=== PATIENT | female | born 1950 | race African-American/Black ===

== ENCOUNTER 2017-06-22 08:25 | Emergency (ER) | payer OTHER ==
[2017-06-22 08:30] VITALS: RESP 18
--- NOTE | 2017-06-22 09:05 | XR ---
EXAMINATION TYPE: XR ankle complete LT DATE OF EXAM: 06/22/2017 CLINICAL HISTORY: Left ankle mass with pain and swelling. TECHNIQUE: Frontal, lateral and oblique images of the left ankle are obtained. COMPARISON: None. FINDINGS: There is no acute fracture/dislocation evident in the left ankle. The ankle mortise appea rs within normal limits. There is focal soft tissue swelling over the lateral malleolus. No cortical erosion or periosteal reaction is seen of the fibula.. IMPRESSION: 1. No acute fracture or dislocation in the left ankle. 2. Focal soft tissue swelling over the lateral malleolus. No evidence of osseous involvement radiogra phically. This could represent tissue swelling from injury/trauma with ligamentous or tendinous injur y. Alternatively this could represent a soft tissue mass and enhance MRI could be utilized for furthe r characterization.
--- NOTE | 2017-06-22 09:34 | US ---
EXAMINATION TYPE: US extremity nonvasc mass LT DATE OF EXAM: 06/22/2017 COMPARISON: NONE CLINICAL HISTORY: Palpable lump left ankle x2 weeks. Cystic area visualized measuring 3.8 x 1.6 x 2.8 cm IMPRESSION: There is a 3.8 cm cystic lesion overlying the area of palpable abnormality correlate cli nically.
[2017-06-22] MEDS ORDERED: HYDROcodone/APAP 5-325MG 1 EACH TAB PO STA (09:45)
--- NOTE | 2017-06-22 10:14 | ED ---
Skin/Abscess/FB HPI - General Chief complaint: Skin/Abscess/Foreign Body Stated complaint: Lump on ankle Time Seen by Provider: 06/22/17 08:32 Source: patient, RN notes reviewed Mode of arrival: wheelchair Limitations: no limitations - History of Present Illness Initial comments: This a 66-year-old female presents emergency Department chief complaint of swelling to her left ankle region. She states it has been present for last 1-2 weeks. Denies any injury. She states it does hurt if you press over the area but not to codeine bleeding. Denies rolling her ankle. Denies any leg swelling. She states she's not had this evaluated has not taken any recent Tylenol Motrin. Patient has had no prior injuries like this in the past. - Related Data Previous Rx's Medication Instructions Recorded Hydrocodone/Acetaminophen [Gray 1 tab PO Q6HR PRN #12 tab 06/22/17 5-325] Ibuprofen [Motrin] 600 mg PO Q8HR PRN #30 tab 06/22/17 Allergies Allergy/AdvReac Type Severity Reaction Status Date / Time No Known Allergies Allergy Verified 06/22/17 10:36 Review of Systems ROS Statement: Those systems with pertinent positive or pertinent negative responses have been documented in the HPI. ROS Other: All systems not noted in ROS Statement are negative. Past Medical History History of Any Multi-Drug Resistant Organisms: None Reported Past Surgical History: Tubal Ligation Past Psychological History: No Psychological Hx Reported Smoking Status: Current some day smoker Past Alcohol Use History: None Reported Past Drug Use History: None Reported General Exam Limitations: no limitations General appearance: alert, in no apparent distress Head exam: Present: atraumatic, normocephalic, normal inspection Respiratory exam: Present: normal lung sounds bilaterally. Absent: respiratory distress, wheezes, rales, rhonchi, stridor Cardiovascular Exam: Present: regular rate, normal rhythm, normal heart sounds. Absent: systolic murmur, diastolic murmur, rubs, gallop, clicks Extremities exam: Present: other (Left ankle lateral malleolus there is an area of swelling approximately 2 cm that is boggy in nature there is no warmth pedal pulses are equal bilaterally there is no calf tenderness there is no tenderness of the foot or calf region.) Skin exam: Present: warm, dry. Absent: rash Course Vital Signs 06/22/17 08:26 Temperature 98.7 F Pulse Rate 94 Respiratory 18 Rate Blood Pressure 139/76 O2 Sat by Pulse 100 Oximetry Medical Decision Making - Medical Decision Making 66-year-old female presented for swelling to her left ankle. Patient had x-ray and ultrasound. Ultrasound shows cystic structure. This does not appear to be abscess or infectious there is no warmth. Patient will be discharged and follow -up with orthopedics. Return parameters were discussed. Disposition Clinical Impression: Cyst of soft tissue Disposition: HOME SELF-CARE Condition: Stable Instructions: Cyst (ED) Additional Instructions: Please return to the Emergency Department if symptoms worsen or any other concerns. Prescriptions: Hydrocodone/Acetaminophen [Gray 5-325] 1 tab PO Q6HR PRN #12 tab PRN Reason: Pain Ibuprofen [Motrin] 600 mg PO Q8HR PRN #30 tab PRN Reason: Pain Is patient prescribed a controlled substance at d/c from ED?: Yes If prescribed controlled substance>3 days was MAPS reviewed?: No When asked, does pt state using other controlled substances?: No Referrals: None,Stated [Primary Care Provider] - 1-2 days Jaziel Padgett MD [STAFF PHYSICIAN] - 1-2 days Time of Disposition: 10:40
[2017-06-22 11:03] VITALS: BP 144/75; PULSE 72; TEMP 98
== END 2017-06-22 11:03 | disposition home or self-care (01) ==
LOC: EC 08:25
DX: M79.9 Soft tissue disorder, unspecified (principal); F17.200 Nicotine dependence, unspecified, uncomplicated
CPT/HCPCS: 99284

== ENCOUNTER 2018-04-28 18:59 | Emergency (ER) | payer MEDICARE, OTHER ==
--- NOTE | 2018-04-28 19:27 | ED ---
Nausea/Vomiting/Diarrhea HPI - General Chief complaint: Nausea/Vomiting/Diarrhea Stated complaint: Poss flu Time Seen by Provider: 04/28/18 19:26 Source: patient, RN notes reviewed, old records reviewed Mode of arrival: ambulatory Limitations: no limitations - History of Present Illness Initial comments: This is a 67-year-old female the ER for evaluation of not feeling well. Fever body aches nausea vomiting sore throat. No known sick contacts, no abdominal pain. No diarrhea. No travel history no sick contacts. MD complaint: nausea, vomiting, diarrhea -: days(s) Description of Vomiting: food contents Description of Diarrhea: water Associated Abdominal Pain: Yes Location: diffuse Radiation: none Severity: moderate Severity scale (1-10): 5 Quality: aching Consistency: constant Improves with: none Worsens with: none Associated Symptoms: fever/chills, loss of appetite, nausea/vomiting, weakness - Related Data Home Medications Medication Instructions Recorded Confirmed No Known Home Medications 04/28/18 04/28/18 Allergies Allergy/AdvReac Type Severity Reaction Status Date / Time No Known Allergies Allergy Verified 04/28/18 19:59 Review of Systems ROS Statement: Those systems with pertinent positive or pertinent negative responses have been documented in the HPI. ROS Other: All systems not noted in ROS Statement are negative. Past Medical History Past Medical History: No Reported History History of Any Multi-Drug Resistant Organisms: None Reported Past Surgical History: Tubal Ligation Past Psychological History: No Psychological Hx Reported Smoking Status: Current some day smoker Past Alcohol Use History: None Reported Past Drug Use History: None Reported General Exam Limitations: no limitations General appearance: alert, in no apparent distress Head exam: Present: atraumatic, normocephalic, normal inspection Eye exam: Present: normal appearance, PERRL, EOMI. Absent: scleral icterus, conjunctival injection, periorbital swelling ENT exam: Present: normal exam, mucous membranes moist Neck exam: Present: normal inspection. Absent: tenderness, meningismus, lymphadenopathy Respiratory exam: Present: normal lung sounds bilaterally. Absent: respiratory distress, wheezes, rales, rhonchi, stridor Cardiovascular Exam: Present: regular rate, normal rhythm, normal heart sounds. Absent: systolic murmur, diastolic murmur, rubs, gallop, clicks GI/Abdominal exam: Present: soft, normal bowel sounds. Absent: distended, tenderness, guarding, rebound, rigid Extremities exam: Present: normal inspection, full ROM, normal capillary refill. Absent: tenderness, pedal edema, joint swelling, calf tenderness Back exam: Present: normal inspection Neurological exam: Present: alert, oriented X3, CN II-XII intact Psychiatric exam: Present: normal affect, normal mood Skin exam: Present: warm, dry, intact, normal color. Absent: rash Course Vital Signs 04/28/18 19:15 Temperature 99.6 F Pulse Rate 107 H Respiratory 18 Rate Blood Pressure 153/81 O2 Sat by Pulse 96 Oximetry Medical Decision Making - Medical Decision Making 67 female the ER for evaluation, patient symptoms much improved currently. X- rays negative labwork is normal. Patient can be discharged home - Lab Data Result diagrams: 04/28/18 19:45 04/28/18 19:45 Lab Results 04/28/18 04/28/18 04/28/18 Range/Units 19:45 19:45 19:45 WBC 5.4 (3.8-10.6) k/uL RBC 4.67 (3.80-5.40) m/uL Hgb 14.0 (11.4-16.0) gm/dL Hct 42.8 (34.0-46.0) % MCV 91.6 (80.0-100.0) fL MCH 30.0 (25.0-35.0) pg MCHC 32.7 (31.0-37.0) g/dL RDW 13.9 (11.5-15.5) % Plt Count 209 (150-450) k/uL Neutrophils % 60 % Lymphocytes % 28 % Monocytes % 7 % Eosinophils % 2 % Basophils % 0 % Neutrophils # 3.2 (1.3-7.7) k/uL Lymphocytes # 1.5 (1.0-4.8) k/uL Monocytes # 0.4 (0-1.0) k/uL Eosinophils # 0.1 (0-0.7) k/uL Basophils # 0.0 (0-0.2) k/uL Sodium 135 L (137-145) mmol/L Potassium 3.8 (3.5-5.1) mmol/L Chloride 103 (98-107) mmol/L Carbon Dioxide 23 (22-30) mmol/L Anion Gap 9 mmol/L BUN 12 (7-17) mg/dL Creatinine 0.94 (0.52-1.04) mg/dL Est GFR (CKD-EPI)AfAm 74 (>60 ml/min/1.73 sqM) Est GFR (CKD-EPI)NonAf 64 (>60 ml/min/1.73 sqM) Glucose 89 (74-99) mg/dL Calcium 9.4 (8.4-10.2) mg/dL Phosphorus 2.4 L (2.5-4.5) mg/dL Magnesium 1.7 (1.6-2.3) mg/dL Total Bilirubin 0.6 (0.2-1.3) mg/dL AST 25 (14-36) U/L ALT 24 (9-52) U/L Alkaline Phosphatase 58 (38-126) U/L Troponin I <0.012 (0.000-0.034) ng/mL Total Protein 7.8 (6.3-8.2) g/dL Albumin 4.0 (3.5-5.0) g/dL - EKG Data -: EKG Interpreted by Me (EKG shows sinus tachycardia rate of 104, GA 136, QRS 60, QTc 431) - Radiology Data Radiology results: report reviewed (X-ray of abdominal surgeries and chest is negative), image reviewed Disposition Clinical Impression: Nausea & vomiting, Influenza Disposition: HOME SELF-CARE Instructions (If sedation given, give patient instructions): Influenza (ED), Acute Nausea and Vomiting (ED) Is patient prescribed a controlled substance at d/c from ED?: No Referrals: None,Stated [Primary Care Provider] - 1-2 days
[2018-04-28] MEDS ORDERED: SODIUM CHLORIDE 0.9% 1,000 ML IV STA ×2 (19:28)
[2018-04-28] MEDS ORDERED: SODIUM CHLORIDE 0.9% 500 ML 500 ML IV STA (19:28)
[2018-04-28] MEDS ORDERED: ONDANSETRON 4 MG/2 ML VIAL IVP STA (19:28)
[2018-04-28 20:03] LABS: Basophils % (A) 0 %; Eosinophils # (A) 0.1 k/uL (0-0.7); Eosinophils % (A) 2 %; HCT 42.8 % (34.0-46.0); Lymphocytes # (A) 1.5 k/uL (1.0-4.8); Lymphocytes % (A) 28 %; MCHC 32.7 g/dL (31.0-37.0); MCV 91.6 fL (80.0-100.0); Mean Platelet Volume 8.2; Monocytes # (A) 0.4 k/uL (0-1.0); Monocytes % (A) 7 %; Neutrophils # (A) 3.2 k/uL (1.3-7.7); Neutrophils % (A) 60 %; Platelet Count 209 k/uL (150-450); RBC 4.67 m/uL (3.80-5.40); RDW 13.9 % (11.5-15.5); WBC 5.4 k/uL (3.8-10.6)
[2018-04-28 20:16] LABS: Calcium 9.4 mg/dL (8.4-10.2); Magnesium 1.7 mg/dL (1.6-2.3); Phosphorus 2.4 mg/dL (2.5-4.5); Potassium 3.8 mmol/L (3.5-5.1); Total Bilirubin 0.6 mg/dL (0.2-1.3); Total Protein 7.8 g/dL (6.3-8.2)
--- NOTE | 2018-04-28 21:09 | XR ---
EXAMINATION TYPE: XR abdomen acute w cxr DATE OF EXAM: 04/28/2018 COMPARISON: NONE HISTORY: Nausea and vomiting TECHNIQUE: Chest x-ray with supine and upright abdomen FINDINGS: Bowel gas pattern is normal. There is no sign of intestinal obstruction or pneumoperitoneum. Fecal pa ttern is normal. There is slight lumbar levoscoliosis. There are no pathologic calcifications. Heart and mediastinum are normal. Lungs are clear. Diaphragm is normal. There is no pleural effusion. Bony thorax is intact. IMPRESSION: Nonacute abdomen. Normal chest.
[2018-04-28] MEDS ORDERED: IBUPROFEN 400 MG TAB PO STA (22:13)
[2018-04-28] MEDS ORDERED: ACETAMINOPHEN TAB 500 MG TAB PO STA (22:13)
[2018-04-28] MEDS ORDERED: DEXAMETHASONE SOD PHOSPHATE 10 MG/ML 1 ML VIAL IV STA (22:13)
[2018-04-28 23:47] VITALS: BP 145/68; PULSE 106; RESP 22; TEMP 99.9
== END 2018-04-28 23:30 | disposition home or self-care (01) ==
LOC: EC 18:59
DX: J11.1 Influenza due to unidentified influenza virus with other respiratory manifestations (principal); R11.2 Nausea with vomiting, unspecified; R19.7 Diarrhea, unspecified; F17.200 Nicotine dependence, unspecified, uncomplicated; Z98.51 Tubal ligation status
CPT/HCPCS: 36415; 93005; 80053; 83735; 84100; 84484; 85025; 87502; 74022; 99285; 96374; 96375; 96361 ×3; J1100; J2405

== ENCOUNTER → 2019-04-05 | Outpatient (CLI) | payer MEDICARE, OTHER ==
[2019-04-05 13:02] LABS: Basophils % (A) 1 %; Eosinophils # (A) 0.1 k/uL (0-0.7); Eosinophils % (A) 2 %; HCT 44.5 % (34.0-46.0); HGB 13.6 gm/dL (11.4-16.0); Lymphocytes # (A) 2.4 k/uL (1.0-4.8); Lymphocytes % (A) 38 %; MCH 29.2 pg (25.0-35.0); MCHC 30.7 g/dL (31.0-37.0); MCV 95.2 fL (80.0-100.0); Mean Platelet Volume 7.7; Monocytes # (A) 0.3 k/uL (0-1.0); Monocytes % (A) 5 %; Neutrophils # (A) 3.4 k/uL (1.3-7.7); Neutrophils % (A) 53 %; Platelet Count 273 k/uL (150-450); RBC 4.67 m/uL (3.80-5.40); RDW 13.5 % (11.5-15.5); WBC 6.4 k/uL (3.8-10.6)
[2019-04-05 13:06] LABS: Calcium 9.8 mg/dL (8.4-10.2); Potassium 5.1 mmol/L (3.5-5.1)
== END | disposition home or self-care (01) ==
LOC: LABPAT 11:53
PROVIDERS: ATTEND Internal Medicine
DX: Z01.818 Encounter for other preprocedural examination (principal)
CPT/HCPCS: 36415; 80048; 85025; 93005

== ENCOUNTER 2019-04-07 08:27 | Day surgery (SDC) | payer MEDICARE, OTHER ==
[2019-04-05 13:32] VITALS: BMI 31.6
[~2019-04-07 08:27] MED LIST: DEXAMETHASONE SOD PHOSPHATE 10 MG/ML 1 ML VIAL IV ONE; HYDROmorphone 0.5 MG/0.5 ML SYRINGE IVP PRN; LACTATED RINGERS 1,000 ML IV SCH; LIDOCAINE 1% 20 ML VIAL (10MG/ML) FOR IV START INTRADERMA PRN; MIDAZOLAM 2 MG/2 ML VIAL IV PRN; ONDANSETRON 4 MG/2 ML VIAL IVP ONE; fentaNYL (PF) 50 MCG/ML 2 ML AMP IV PRN
[2019-04-07] MEDS ORDERED: ePHEDrine SULFATE/0.9% NACL/PF 50 MG/5 ML SYRINGE IV ONE (10:12)
[2019-04-07] MEDS ORDERED: fentaNYL (PF) 50 MCG/ML 2 ML AMP ONE (10:12)
[2019-04-07] MEDS ORDERED: MIDAZOLAM 2 MG/2 ML VIAL ONE (10:12)
[2019-04-07] MEDS ORDERED: PROPOFOL 10 MG/ML 20 ML VIAL IV ONE (10:12)
[2019-04-07] MEDS ORDERED: LIDOCAINE 1% INJ 10MG/ML (20 ML MDV) ONE (10:12)
[2019-04-07] MEDS ORDERED: BUPIVACAINE (PF) 0.5% 30 ML VIAL SQ ONE ×2 (10:44→11:07)
--- NOTE | 2019-04-07 11:05 | P.OP ---
Date of Procedure: 04/07/19 Preoperative Diagnosis: Left ankle mass, likely ganglion cyst Postoperative Diagnosis: Same Procedure(s) Performed: Excision of ganglion cyst, left ankle Anesthesia: YOANA Surgeon: Bryce Murillo Flight Test Engineer #1: Suha Carlson Estimated Blood Loss (ml): 5 IV fluids (ml): 500 Pathology: other (Ganglion cyst sent to pathology) Condition: stable Disposition: PACU Indications for Procedure: The patient is a very pleasant 68-year-old female who is been following in my office for a mass over the lateral aspect of the ankle. She had an attempted aspiration in a clear fluid consistent with a ganglion cyst was aspirated. Unfortunately the cyst recurred. We discussed treatment options including observation, repeat attempt at aspiration, and surgical excision. The patient requested surgical excision. We discussed risk of recurrence being between 5 and 10%. She understands this. We discussed the potential risks and complications of surgery including but not limited to risk of anesthesia, infection, damage to local blood vessels or nerves, recurrence of the cyst, risk of the mass being malignant, risk of need for further surgery risk of continued or worsened pain, and possibly loss of life or limb. The patient understands these complications and fracture verbal and written consent to go forward with surgery. Description of Procedure: The patient was then verified and prepped holding and the correct left ankle was marked with my initials. I reviewed the consent form with the patient and all of her questions were answered. The patient was then brought back to the operating room by anesthesia. She was positioned on the OR table where a general anesthetic was given. A tourniquet was applied to the proximal aspect of the left leg. The left leg was then prepped and draped in standard sterile fashion. Prior to starting surgery timeout was performed identifying the correct patient, operative extremity, and procedure. The patient's leg was then elevated for 3 minutes and the tourniquet was inflated to 250 mmHg. I began by outlining a longitudinal incision centered over the anterolateral aspect of the ankle extending distally in line with the fourth ray. Skin incision was made with a scalpel. Dissection was carried down carefully with tenotomy scissors. The superficial peroneal nerve was identified and carefully retracted. Veins were controlled with electrocautery. I took great care to circumferentially expose and dissect the mass free from the surrounding tissue without inadvertently rupturing the mass. The stalk of the cyst was identified and cut as close to its base as possible. I was able to remove the mass en bloc without rupturing it. It appeared to come either from the ankle peroneal tendon sheath. The wound was thoroughly irrigated and closed in layers. The mass was sent to pathology. A sterile dressing was applied. The patient was then awoken from her anesthetic, extubated, transferred to a rtyler, and brought to recovery and procedure well. Plan: The patient is going to discharge home as an outpatient. She is to weight-bear as tolerated in a boot. She should leave her dressing on for 2 days. After 2 days she can change her surgical dressing and get her incision wet, but should not soak it. She'll follow-up in 2 weeks for a wound check.
[2019-04-07 11:22] VITALS: TEMP 97.3
[2019-04-07 11:32] VITALS: RESP 16
[2019-04-07 12:50] VITALS: BP 128/78; PULSE 81
[2019-04-07] MEDS ORDERED: HYDROcodone/APAP 5-325MG 1 EACH TAB PO ONE (12:50)
== END 2019-04-07 13:35 | disposition home or self-care (01) ==
LOC: OR 08:27
PROVIDERS: ATTEND Orthopaedic Surgery
DX: M67.472 Ganglion, left ankle and foot (principal); Z97.3 Presence of spectacles and contact lenses; Z98.51 Tubal ligation status
CPT/HCPCS: 88304; 27630; J2250; J1100; J0690; J2405; J2001; J3010; J2704; J1170